=== PATIENT | male | born 1965 | race Two or more races ===

== ENCOUNTER 2024-05-15 16:20 | Emergency (ER) | payer MEDICARE, MEDICAID, SELFPAY ==
[2024-05-15 16:33] VITALS: BP 119/82; PULSE 72; RESP 20; TEMP 36.6; O2SAT 95
--- NOTE | 2024-05-15 16:51 | PD.EDRME ---
Rapid Medical Screening Exam E Arrival date/time: 05/15/24 16:20 This is a 59-year-old complains of left flank pain that started 3 days ago. Patient reports chronic back pain. Patient has a history of high blood pressure. Patient denies any trauma or injury. Patient denies any urinary symptoms. Patient denies any numbness tingling to extremities. Patient denied of bowel or bladder control. I have greeted and performed a focused initial assessment of this patient. Initial appropriate labs ordered at this time. A comprehensive ED assessment and evaluation of the patient and analysis of all test and completion of medical decision making process will be conducted by additional ED provider. Chief Complaint: Back Pain/Injury Time Seen by Provider: 05/15/24 16:35 Vital signs: Vital Signs Temperature 97.8 F 05/15/24 16:33 Pulse Rate 72 05/15/24 16:33 Respiratory Rate 20 05/15/24 16:33 Blood Pressure 119/82 05/15/24 16:33 Pulse Oximetry (%) 95 05/15/24 16:33 Oxygen Delivery Method Room Air 05/15/24 16:33
[2024-05-15 17:05] LABS: Basophils % (Auto) 0 % (0-2.5); Eosinophils # (Auto) 0.2 Thou/mm3 (0.0-0.5); Eosinophils % (Auto) 3 % (0-10); Hematocrit 46.5 % (41.0-53.0); Hemoglobin 16.4 g/dL (13.5-16.0); Immature Granulocytes % (Auto) 1 % (0-0); Immature Granulocytes Auto 0.06 Thou/mm3 (0.00-0.00); Lymphocytes # (Auto) 3.3 Thou/mm3 (1.0-4.8); Lymphocytes % (Auto) 37 % (10-50); Mean Corpuscular HGB Conc 35.3 g/dl (31.0-37.0); Mean Corpuscular Hemoglobin 31.1 pg (25.0-35.0); Mean Corpuscular Volume 88 fL (80-100); Monocytes # (Auto) 0.8 Thou/mm3 (0.0-0.8); Monocytes % (Auto) 9 % (0-12); Neutrophils # (Auto) 4.5 Thou/mm3 (1.8-7.7); Neutrophils % (Auto) 51 % (37-80); Nucleated Red Blood Cell % 0 /100 WBC (0); Platelet Count 313 Thou/mm3 (140-440); RDW Standard Deviation 40.1 fL (35.1-43.9); Red Blood Count 5.28 Miln/mm3 (4.50-5.90); White Blood Count 8.8 Thou/mm3 (3.8-10.6)
[2024-05-15] MEDS: KETOROLAC INJ 60 MG/2 ML VIAL IM (17:14)
[2024-05-15 17:21] LABS: Collection Type, Urine Voided; Squamous Epithelial Cell,Urine 0 /hpf (0-5)
[2024-05-15 17:23] LABS: Alanine Aminotransferase 26 U/L (10-49); Albumin, Serum 4.3 gm/dL (3.4-4.8); Albumin/Globulin Ratio 2.2 (1.2-2.2); Alkaline Phosphatase 101 U/L (46-116); Anion Gap 7 (7-16); Aspartate Amino Transferase 14 U/L (0-34); BUN/Creatinine Ratio 17 Ratio (12-20); Bilirubin,Total 0.4 mg/dL (0.3-1.2); Blood Urea Nitrogen 20 mg/dL (9-23); Calcium 9.4 mg/dL (8.3-10.6); Calcium (Corrected) 9.4 mg/dL (8.5-10.1); Carbon Dioxide 30.4 mMol/L (20.0-31.0); Chloride 103 mMol/L (98-107); Creatinine (Component) 1.2 mg/dL (0.6-1.3); Glucose 94 mg/dL (74-106); Lipase 45 U/L (12-53); Osmolality,Calculated 282 (275-295); Potassium 4.4 mMol/L (3.4-5.1); Sodium 140 mMol/L (136-145); Total Protein 6.3 gm/dL (5.7-8.2); eGFR > 60 See Note
[2024-05-15 17:26] LABS: Bilirubin,Urine Negative (Negative); Blood,Urine Negative (Negative); Clarity,Urine Clear (Clear/Hazy); Color,Urine Lt-Yellow (Lt Yel-Yel); Culture Indicated,Urine Not Indicated; Glucose, Urine Negative (Negative); Ketones,Urine Negative (Negative); Leukocyte Esterase,Urine Negative (Negative); Nitrite,Urine Negative (Negative); PH,Urine 6.5 (5.0-7.0); Protein,Urine Negative (Neg - Trace); RBC,Urine 2 /hpf (0-3); Specific Gravity,Urine 1.022 (1.001-1.035); Urobilinogen,Urine Negative mg/dL (0.0-1.0); WBC,Urine 1 /hpf (0-5)
--- NOTE | 2024-05-15 18:15 | EDNOTE_ITS ---
ED Back Injury Pain RME/HPI General Chief Complaint: Back Pain/Injury Stated Complaint: LEFT FLANK PAIN Time Seen by Provider: 05/15/24 16:35 Arrival date/time: 05/15/24 16:20 This is a 59-year-old complains of left flank pain that started 3 days ago. Patient reports chronic back pain. Patient has a history of high blood pressure. Patient denies any trauma or injury. Patient denies any urinary symptoms. Patient denies any numbness tingling to extremities. Patient denied of bowel or bladder control. RME / HPI RME / HPI Narrative: 05/15/24 16:20 This is a 59-year-old complains of left flank pain that started 3 days ago. Patient reports chronic back pain. Patient has a history of high blood pressure. Patient denies any trauma or injury. Patient denies any urinary symptoms. Patient denies any numbness tingling to extremities. Patient denied of bowel or bladder control. I have greeted and performed a focused initial assessment of this patient. Initial appropriate labs ordered at this time. A comprehensive ED assessment and evaluation of the patient and analysis of all test and completion of medical decision making process will be conducted by additional ED provider. Related Data Home Medications ?Medication ?Instructions ?Recorded ?Confirmed gabapentin 300 mg capsule 400 mg PO TID #0 caps 01/09/17 03/16/20 lisinopril 20 mg tablet 20 mg PO QDAY #0 tabs 01/09/17 03/16/20 omeprazole 40 mg capsule,delayed 40 mg PO QDAY ##0 01/09/17 03/16/20 release acetaminophen 500 mg tablet 500 mg PO Q6H PRN Pain 03/16/20 03/16/20 baclofen 10 mg tablet 10 mg PO BID 03/16/20 03/16/20 cetirizine 10 mg tablet 10 mg PO QDAY 03/16/20 03/16/20 hydrocodone 7.5 mg-acetaminophen 1 tab PO Q8H 03/16/20 03/16/20 325 mg tablet Previous Rx's ?Medication ?Instructions ?Recorded ondansetron 4 mg disintegrating 4 mg PO Q8H PRN nausea and 12/22/20 tablet vomiting #10 tabs cyclobenzaprine 10 mg tablet 10 mg PO TID PRN muscle spasm #30 01/15/24 tabs ibuprofen 800 mg tablet 800 mg PO TID PRN pain #30 tabs 01/15/24 cyclobenzaprine 10 mg tablet 10 mg PO HS PRN muscle spasm #14 05/15/24 tabs ibuprofen 800 mg tablet 800 mg PO Q6H PRN pain #14 tabs 05/15/24 Allergies Allergy/AdvReac Type Severity Reaction Status Date / Time Penicillins Allergy Intermediate RASH ALL Verified 05/15/24 16:23 OVER Review of Systems Review of Systems Systems Reviewed: All systems reviewed, normal except as documented Past Medical History Past Medical History CARDIAC: Positive Hypertension Social History SMOKING STATUS: Never smoker SUBSTANCE USE: does not use ALCOHOL: Never Travel History EBOLA RISK: No ED Exam General General appearance: Present alert and in no apparent distress Head Head exam: Present atraumatic Eye Eye exam: Present normal appearance, PERRL and EOMI ENT ENT exam: Present normal exam, normal oropharynx and mucous membranes moist Neck Neck exam: Present normal inspection, full ROM and trachea midline Chest Chest inspection: Present normal inspection and symmetric chest wall rise Respiratory Respiratory exam: Present normal lung sounds bilaterally Cardiovascular Cardiovascular exam: Present regular rate, normal rhythm and normal heart sounds Abdominal Exam Abdominal exam: Present soft Extremities Exam Extremities exam: Present full ROM and other (Pain to palpation to lateral muscles of bilateral lower back, no pain over spinal processes.) Back Exam Back exam: Present normal inspection and full ROM Neurological Exam Neurological exam: Present alert, oriented X3 and CN II-XII intact Psychiatric Psychiatric exam: Present normal affect and normal mood Skin Skin exam: Present warm, dry, intact and normal color Course Quality Measures none Orders Category Date Time Status CBC Stat Lab 05/15/24 16:50 Completed Comprehensive Metabolic Panel Stat Lab 05/15/24 16:50 Completed Lipase Stat Lab 05/15/24 16:50 Completed Urinalysis, C/S if Indicated Stat Lab 05/15/24 17:18 Completed HYDROcodone*/APAP 5/325 [Cecilia 5/325] Med 05/15/24 18:14 Discontinued 1 tab PO X1 ONE Ketorolac Inj [Toradol Inj] Med 05/15/24 16:50 Discontinued 60 mg IM X1 ONE Vital Signs Vital signs: Vital Signs Temperature 97.8 F 05/15/24 16:33 Pulse Rate 72 05/15/24 16:33 Respiratory Rate 20 05/15/24 16:33 Blood Pressure 119/82 05/15/24 16:33 Pulse Oximetry (%) 95 05/15/24 16:33 Oxygen Delivery Method Room Air 05/15/24 16:33 Back Pain / Injury MDM Narrative MDM Narrative:: Patient given Cecilia and Toradol for pain. Labs unremarkable. Patient felt better after pain medication. Will send patient home and have him follow-up with primary provider in 1 to 2 days. Come back to the emergency room if symptoms change or worsen. Patient data External records reviewed:: [facility] previous records Clinical information provided by:: patient Social determinants that could affect healthcare access:: none Patient has the following chronic illnesses:: None How is presenting disease/condition affected by chronic disease/condition?: no chronic disease Evaluation data The following diagnostics were reviewed and interpreted by me:: lab results Lab and/or radiology exams considered but not ordered:: None Interpretation Summary: See note Medications / Prescriptions Medications or Prescriptions considered but not ordered:: None Medication administrations:: Medication Administration History Discontinued Medications Hydrocodone Bitart/Acetaminophen (Hydrocodone/Apap 5/325 Tablet) 1 tab PO X1 ONE Stop: 05/15/24 18:15 Last Admin: 05/15/24 18:40 Dose: 1 tab Documented By: KADEN Ketorolac Tromethamine (Ketorolac Inj 60 Mg/2 Ml Vial) 60 mg IM X1 ONE Stop: 05/15/24 16:51 Last Admin: 05/15/24 17:14 Dose: 60 mg Documented By: KADEN See [facility] Consultations Consultation(s) initiated? (list below): No Diagnosis Most likely diagnosis given after review of the tests above:: Back pain Admission Indicated Admission indicated?: not indicated Admission Request Was there a request for admission?: No Disposition Plan Disposition Plan: Discharge Discharge Attestation Discharge Attestation: The patient and all family members were given an opportunity to ask questions and understood the discharge instructions. Discharge instructions specifically effects, indications for sooner follow up or return to the emergency department, and the expected course of current diagnosis. Patient condition: Stable Discharge Plan Plan Patient Disposition: HOME (Self Care) Patient condition on transfer: Stable Prescriptions/Referrals Prescriptions/Med Rec: New cyclobenzaprine 10 mg tablet 10 mg PO HS PRN (Reason: muscle spasm) Qty: 14 0RF ibuprofen 800 mg tablet 800 mg PO Q6H PRN (Reason: pain) Qty: 14 0RF No Action lisinopril 20 MG tablet 20 mg PO QDAY Qty: 0 omeprazole 40 MG capsule,delayed release(DR/EC) 40 mg PO QDAY Qty: 0 gabapentin 300 MG capsule 400 mg PO TID Qty: 0 ondansetron 4 mg tablet,disintegrating 4 mg PO Q8H PRN (Reason: nausea and vomiting) Qty: 10 0RF acetaminophen 500 mg Tablet 500 mg PO Q6H PRN (Reason: Pain) cetirizine 10 mg Tablet 10 mg PO QDAY hydrocodone-acetaminophen 7.5-325 mg Tablet 1 tab PO Q8H baclofen 10 mg Tablet 10 mg PO BID cyclobenzaprine 10 mg tablet 10 mg PO TID PRN (Reason: muscle spasm) Qty: 30 0RF ibuprofen 800 mg tablet 800 mg PO TID PRN (Reason: pain) Qty: 30 0RF Referrals: Claude Plascencia MD [Primary Care Provider] - In 1 week Problem List Clinical Impression: Back pain Patient/Caregiver Discharge Instructions Discharge Activity: activity as tolerated Education Materials: ED Back Pain (Acute or Chronic) Additional Instructions: Follow up with primary provider in 1-2 days. Come back to ED if symptoms change or worsen Print Language: Croatian Stand Alone Forms: Cece Award Info., Patient Portal Info Letter PA/JEREMY Supervising Physician JOSE/JEREMY Supervising Physician: [email or web address]
[2024-05-15] MEDS: HYDROcodone/APAP 5/325 TABLET 1 TAB PO (18:40)
== END 2024-05-15 18:45 | disposition home or self-care (01) ==
PROVIDERS: Nurse Practitioner Family; Emergency Provider Emergency Medicine; PCP Family Medicine
DX: M54.9 Dorsalgia, unspecified (principal)
CPT/HCPCS: 36415; 80053; 81001; 83690; 85025; 96372; 99283; J1885; A9270

== ENCOUNTER 2024-08-22 21:42 | Emergency (ER) | payer MEDICARE, MEDICAID, SELFPAY ==
--- NOTE | 2024-08-22 21:45 | EKG_ITS ---
[facility] Test Date: 2024-08-22 Pat Name: YVETTE DIGGS Department: Room: - Gender: Male Newcomer Hostess: : 1965 Requested By: ED Temporary Provider Order Number: [id number] Reading MD: ED Temporary Provider Measurements Intervals [place] Rate: 54 P: 38 GA: 169 QRS: -2 QRSD: 91 T: 39 QT: 389 QTc: 370 Interpretive Statements SINUS BRADYCARDIA POSSIBLE ANTERIOR MYOCARDIAL INFARCTION , OF INDETERMINATE AGE [30 ms Q WAVE IN V3/V4, OR R < 0.2 mV IN V4] No previous ECG available for comparison /store/S0/[id number].pdf
[2024-08-22 21:49] VITALS: BP 161/90; PULSE 62; RESP 20; TEMP 36.7; O2SAT 96
--- NOTE | 2024-08-22 21:53 | XR_ITS ---
Examination: PA chest single view TECHNIQUE: Upright PA chest single view Standing time: August 22, 2024 10:22 PM Comparison 01/15/2024 INDICATIONS: Chest pain shortness of breath today FINDINGS: Normal heart size. Lungs are clear. The osseous structures are intact IMPRESSION: No active disease
--- NOTE | 2024-08-22 21:53 | PD.EDRME ---
Rapid Medical Screening Exam RME Arrival date/time: 08/22/24 21:42 Chief Complaint: Chest Pain Vital signs: Vital Signs Temperature 98.1 F 08/22/24 21:49 Pulse Rate 62 08/22/24 21:49 Respiratory Rate 20 08/22/24 21:49 Blood Pressure 161/90 H 08/22/24 21:49 Pulse Oximetry (%) 96 08/22/24 21:49 Oxygen Delivery Method Room Air 08/22/24 21:49 RME Narrative: Left-sided chest pain radiating to LUE since 1300
[2024-08-22 22:43] LABS: Basophils % (Auto) 1 % (0-2.5); Eosinophils # (Auto) 0.2 Thou/mm3 (0.0-0.5); Eosinophils % (Auto) 3 % (0-10); Hematocrit 43.3 % (41.0-53.0); Hemoglobin 15.7 g/dL (13.5-16.0); Immature Granulocytes % (Auto) 0 % (0-0); Immature Granulocytes Auto 0.02 Thou/mm3 (0.00-0.00); Lymphocytes # (Auto) 2.3 Thou/mm3 (1.0-4.8); Lymphocytes % (Auto) 36 % (10-50); Mean Corpuscular HGB Conc 36.3 g/dl (31.0-37.0); Mean Corpuscular Hemoglobin 32.4 pg (25.0-35.0); Mean Corpuscular Volume 90 fL (80-100); Monocytes # (Auto) 0.5 Thou/mm3 (0.0-0.8); Monocytes % (Auto) 8 % (0-12); Neutrophils # (Auto) 3.3 Thou/mm3 (1.8-7.7); Neutrophils % (Auto) 53 % (37-80); Nucleated Red Blood Cell % 0 /100 WBC (0); Platelet Count 209 Thou/mm3 (140-440); RDW Standard Deviation 39.4 fL (35.1-43.9); Red Blood Count 4.84 Miln/mm3 (4.50-5.90); White Blood Count 6.3 Thou/mm3 (3.8-10.6)
[2024-08-22 23:08] LABS: B-Type Natriuretic Peptide < 20 pg/mL (0-100)
[2024-08-22 23:09] LABS: Alanine Aminotransferase 19 U/L (10-49); Albumin, Serum 4.6 gm/dL (3.4-4.8); Albumin/Globulin Ratio 2.1 (1.2-2.2); Alkaline Phosphatase 106 U/L (46-116); Anion Gap 9 (7-16); Aspartate Amino Transferase 18 U/L (0-34); BUN/Creatinine Ratio 18 Ratio (12-20); Bilirubin,Total 0.7 mg/dL (0.3-1.2); Blood Urea Nitrogen 18 mg/dL (9-23); Calcium 9.6 mg/dL (8.3-10.6); Calcium (Corrected) 9.6 mg/dL (8.5-10.1); Carbon Dioxide 28.4 mMol/L (20.0-31.0); Chloride 104 mMol/L (98-107); Globulin 2.2 gm/dL (2.3-3.5); Glucose 115 mg/dL (74-106); Osmolality,Calculated 284 (275-295); Potassium 3.8 mMol/L (3.4-5.1); Sodium 141 mMol/L (136-145); Total Protein 6.8 gm/dL (5.7-8.2); Troponin I < 0.002 ng/mL (0.0-0.045); eGFR > 60 See Note
[2024-08-23 00:06] VITALS: BP 153/95; PULSE 52; RESP 17; TEMP 36.7; O2SAT 97
--- NOTE | 2024-08-23 00:25 | EDNOTE_ITS ---
ED Chest Pain RME/HPI General Chief Complaint: Chest Pain Stated Complaint: CHEST PAIN Arrival date/time: 08/22/24 21:42 RME / HPI RME / HPI narrative: Left-sided chest pain radiating to LUE since [address] Oneal's Main ED Evaluation: 59yo male presents to the ED for complaints of palpitations and chest pain x 1300. Patient states he started having palpitations and left-sided chest pain when he was sitting down at home, reporting it was still there at 2100, so he came in for evaluation. Patient reports associated diziness and chronic inflammation to his epigastric area that is worse today. Patient denies any N/V, sweating, fever, chills, cough, bloody stools or any other associated symptoms. Related Data Home Medications ?Medication ?Instructions ?Recorded ?Confirmed gabapentin 300 mg capsule 400 mg PO TID #0 caps 03/16/20 lisinopril 20 mg tablet 20 mg PO QDAY #0 tabs 03/16/20 omeprazole 40 mg capsule,delayed 40 mg PO QDAY ##0 03/16/20 release acetaminophen 500 mg tablet 500 mg PO Q6H PRN Pain 03/16/20 baclofen 10 mg tablet 10 mg PO BID 03/16/20 cetirizine 10 mg tablet 10 mg PO QDAY 03/16/2003/16 hydrocodone 7.5 mg-acetaminophen 1 tab PO Q8H 03/16/20 03/16/20 325 mg tablet Previous Rx's ?Medication ?Instructions ?Recorded ondansetron 4 mg disintegrating 4 mg PO Q8H PRN nausea and 12/22/20 tablet vomiting #10 tabs cyclobenzaprine 10 mg tablet 10 mg PO TID PRN muscle s pasm #30 01/15/24 tabs ibuprofen 800 mg tablet 800 mg PO TID PRN pain #30 t abs 01/15/24 cyclobenzaprine 10 mg tablet 10 mg PO HS PRN muscle sp asm #14 05/15/24 tabs ibuprofen 800 mg tablet 800 mg PO Q6H PRN pain #14 t abs 05/15/24 Allergies Allergy/AdvReac Type Severity Reaction Status Date / Time Penicillins Allergy Intermediate RASH ALL Verified 08/22/24 21:42 OVER Review of Systems Review of Systems Systems Reviewed: All systems reviewed, normal except as documented Past Medical History Past Medical History NEUROLOGIC: Negative Neurological Disorders, Seizures or Amyotrophic Lateral Sclerosis (ALS/Mally Gehrig's) CARDIAC: Positive Cardiac Disorders, Hypercholesterolemia (STOP MED ON HIS OWN) and Hypertension; Negative Congestive Heart Failure, Edema, Cellulitis or Varicose Veins RESPIRATORY: Negative Chronic Obstructive Pulmonary Disease (COPD), Pneumonia, Tuberculosis or Sleep Apnea GASTROINTESTINAL: Positive Gastrointestinal Disorders and Gastroesophageal Reflux Disease (TAKES MED); Negative Hepatitis GENITOURINARY: Negative Genitourinary Disorders or Renal Disease MUSCULOSKELETAL: Positive Musculoskeletal Disorders and Arthritis ENDOCRINE: Negative Endocrine Disorders, Diabetes Mellitus Type 1 or Diabetes Mellitus Type 2 HEMATOLOGIC: Negative Blood Disorders OTHER HISTORY: Negative Hospitalization, Autoimmune Disease, Shingles, Falls, Blood Transfusions, Blood Transfusion Reaction, Anesthesia Reactions, Chemotherapy, Radiation Therapy, MRSA, Chicken Pox, Measles, Mumps or Cancer Family History FAMILY HISTORY: Positive Family Cardiac Disorders (Mother had cardiac disorder), Family Cancer (MOTHER) and Family Surgery (BROTHER); Negative Family Psychiatric Problems, Family Respiratory Disorders, Family Gastrointestinal Problems or Family Anesthesia Reaction Surgical History SURGICAL: Negative Pacemaker Social History SMOKING STATUS: Never smoker SUBSTANCE USE: does not use ED Exam Narrative Physical exam: General: Non-toxic, well appearing, in no acute distress, and appears stated age and well developed and well nourished. Vital signs: Normal. Head: Normocephalic and atraumatic. Eyes: Aproptotic, extraocular movements intact. Nose: Nares without evidence of rhinorrhea. Neck: Supple without menigismus without lympadenopathy. Heart: Regular rate and rhythm without murmur, gallops, or rubs. Lungs: Clear to auscultation without wheezing, rales, or rhonchi. Abdomen: Soft, non distended. No tenderness. Normal bowel sounds. Negative Monet sign and no McBurney?s point tenderness. No guarding, rebound, or rovsing. Back: No costovertebral angle tenderness. Neurological: Alert and oriented to person, place, time. Gait normal. Extremities: no cyanosis or edema. Skin: no rashes, ecchymosis, or lesions. Course Course Course Narrative: CXR is ordered for determining the etiology of chest pain. Quality Measures none Orders Category Date Time Status EKG (ED ONLY) *Do not use* NOW Care 08/22/24 21:45 Completed CXR [XR chest 1V] Stat Exams 08/22/24 21:53 Completed EKG (ED Only) Stat Exams 08/22/24 21:45 Draft BNP [B-Type Natriuretic Peptide] Stat Lab 08/22/24 22:08 Completed CBC Stat Lab 08/22/24 22:08 Completed CMP [Comprehensive Metabolic Panel] Stat Lab 08/22/24 22:08 Completed Troponin I Stat Lab 08/22/24 22:08 Completed Troponin I Stat Lab 08/23/24 00:10 Completed Vital Signs Vital signs: Vital Signs Temperature 98.1 F 08/22/24 21:49 Pulse Rate 62 08/22/24 21:49 Respiratory Rate 20 08/22/24 21:49 Blood Pressure 161/90 H 08/22/24 21:49 Pulse Oximetry (%) 96 08/22/24 21:49 Oxygen Delivery Method Room Air 08/22/24 21:49 Chest Pain MDM Narrative MDM Narrative:: Scribe Attestation: 08/23/24 Karey Hernandez am scribing for and in the presence of Dr. Oneal. Patient data External records reviewed:: [facility] previous records (Per chart review, patient was seen here on 05/15/24 for back pain.) Clinical information provided by:: patient Social determinants that could affect healthcare access:: none Patient has the following chronic illnesses:: HTN How is presenting disease/condition affected by chronic disease/condition?: uneffected by Evaluation data The following diagnostics were reviewed and interpreted by me:: lab results, radiology exam(s) and EKG tracing(s) Lab and/or radiology exams considered but not ordered:: none Interpretation Summary: CBC is normal, CMP is normal, BNP is normal, Initial and Repeat Troponins are normal, according to my interpretation. EKG done at 2151, sinus bradycardia, rate of 54, old Q wave in lead III, poor R wave progression, no ST elevation, no STEMI, according to my interpretation. [place] [facility] Report Signed Patient: YVETTE DIGGS Record#: [id number] Birthdate: 1965 Age/Sex: 59 / M Location: [facility] Attending Dr: Ordering Physician: Vernon Dean PA-C Date of Service: 08/22/24 Procedure(s): XR chest 1V Accession Number(s): [id number] cc: Matthew Plascencia MD; Leonid Hills MD; Vernno Dean PA-C~ Examination: PA chest single view TECHNIQUE: Upright PA chest single view Standing time: August 22, 2024 10:22 PM Comparison 01/15/2024 INDICATIONS: Chest pain shortness of breath today FINDINGS: Normal heart size. Lungs are clear. The osseous structures are intact IMPRESSION: No active disease Dictated By: Leonid Hills MD Signed By: <Electronically signed by Leonid Hills MD in OV> 08/22/24 2318 Medications / Prescriptions Medications or Prescriptions considered but not ordered:: none Medication administrations:: None Consultations Consultation(s) initiated? (list below): No Diagnosis Most likely diagnosis given after review of the tests above:: Palpitations Admission Indicated Admission indicated?: not indicated Admission Request Was there a request for admission?: No Disposition Plan Disposition Plan: Discharge Discharge Attestation Discharge Attestation: The patient and all family members were given an opportunity to ask questions and understood the discharge instructions. Discharge instructions specifically effects, indications for sooner follow up or return to the emergency department, and the expected course of current diagnosis. Patient condition: Stable Discharge Plan Plan Patient Disposition: HOME (Self Care) Patient condition on transfer: Stable Prescriptions/Referrals Prescriptions/Med Rec: No Action lisinopril 20 MG tablet 20 mg PO QDAY Qty: 0 omeprazole 40 MG capsule,delayed release(DR/EC) 40 mg PO QDAY Qty: 0 gabapentin 300 MG capsule 400 mg PO TID Qty: 0 ondansetron 4 mg tablet,disintegrating 4 mg PO Q8H PRN (Reason: nausea and vomiting) Qty: 10 0RF acetaminophen 500 mg Tablet 500 mg PO Q6H PRN (Reason: Pain) cetirizine 10 mg Tablet 10 mg PO QDAY hydrocodone-acetaminophen 7.5-325 mg Tablet 1 tab PO Q8H baclofen 10 mg Tablet 10 mg PO BID cyclobenzaprine 10 mg tablet 10 mg PO TID PRN (Reason: muscle spasm) Qty: 30 0RF ibuprofen 800 mg tablet 800 mg PO TID PRN (Reason: pain) Qty: 30 0RF cyclobenzaprine 10 mg tablet 10 mg PO HS PRN (Reason: muscle spasm) Qty: 14 0RF ibuprofen 800 mg tablet 800 mg PO Q6H PRN (Reason: pain) Qty: 14 0RF Referrals: Matthew Plascencia MD [Primary Care Provider] - In 1 week Problem List Clinical Impression: Atypical chest pain, Palpitations Patient/Caregiver Discharge Instructions Education Materials: ED Palpitations Additional Instructions: Follow-up with your primary care provider to see if they want to put you on any thyroid medications. Please return to the ED for any worsening symptoms or as needed. Print Language: Croatian Stand Alone Forms: Cece Award Info., Patient Portal Info Letter
[2024-08-23 00:42] LABS: Troponin I < 0.002 ng/mL (0.0-0.045)
[2024-08-23 03:56] VITALS: BP 136/94; PULSE 67; RESP 16; TEMP 36.7; O2SAT 95
== END 2024-08-23 04:03 | disposition home or self-care (01) ==
PROVIDERS: Physician Assistant; Emergency Provider Emergency Medicine; PCP Family Medicine
DX: R07.89 Other chest pain (principal); R00.2 Palpitations; R00.1 Bradycardia, unspecified; R06.02 Shortness of breath; I10 Essential (primary) hypertension; E78.00 Pure hypercholesterolemia, unspecified
CPT/HCPCS: 36415; 71045; 80053; 83880; 84484; 85025; 93005; 99283

== ENCOUNTER → 2025-02-16 | Outpatient (CLI) | payer MEDICARE, MEDICAID, SELFPAY ==
--- NOTE | 2025-02-16 | XR_ITS ---
EXAMINATION: Cervical spine, 5 views Technique: Cervical spine AP, AP odontoid, lateral, bilateral obliques, 5 views Exam date and time: February 16, 2025, 1110 hours INDICATIONS: Neck pain beginning 6 months ago. FINDINGS: Adequate alignment cervical vertebral bodies Advanced disc narrowing C3-C4 No cervical fracture Intact odontoid Significant bilateral neuroforaminal stenosis C3-C4 IMPRESSION: Advanced degenerative disc disease C3-C4 with significant bilateral neuroforaminal stenosis
== END | disposition home or self-care (01) ==
PROVIDERS: PCP Family Medicine; Referring Provider Physician Assistant; Visit Provider Physician Assistant
DX: M50.31 Other cervical disc degeneration, high cervical region (principal); M48.02 Spinal stenosis, cervical region
CPT/HCPCS: 72050